=== PATIENT | female | born 1950 | race Caucasian/White ===

== ENCOUNTER 2024-09-11 05:21 | Inpatient (IN) | payer MEDICARE, BC, SELFPAY ==
[2024-09-11] VITALS (9 sets, daily range): BP systolic 106–137; BP diastolic 42–67; BMI 20.9
[2024-09-11 01:17] LABS: % Basophils 0.3 % (0-2); % Eosinophils 0.3 % (0-6); % Immature Granulocytes 0.7 % (0-0.5); % Lymphocytes 7.3 % (20.5-51.1); % Monocytes 5.7 % (1.7-9.3); % Neutrophils 85.7 % (42.2-75.2); Absolute Immature Granulocytes 0.1 10^3/uL (0-0.05); Absolute Lymphocytes 0.6 10^3/uL (1.2-3.4); Absolute Monocytes 0.5 10^3/uL (0.1-0.6); Absolute Neutrophils 7.5 10^3/uL (1.4-6.5); Hematocrit 46.4 % (37.0-47.0); Hemoglobin 14.9 g/dL (12.0-16.0); Mean Corp Hgb Conc. 32.1 g/dL (33.0-37.0); Mean Corpuscular Hgb 29.2 pg (27.0-31.0); Nucleated Red Blood Cells % 0 %; Platelet Count 183 10^3/uL (130-400); Red Cell Dist. Width 13.5 % (11.5-14.5); White Blood Cell Count 8.7 10^3/uL (4.8-10.8)
--- NOTE | 2024-09-11 01:35 | ED.GENMED ---
History of Present Illness
<Nanette Mireles, [facility] - Last Filed: 09/11/24 02:16>
General
Chief Complaint: Dehydration Symptoms
Source: patient and spouse
Exam Limitations: altered mental status (pt's states change from baseline)
Time Seen by Provider: 09/11/24 01:03
Nursing documentation reviewed up to this point in time: agreed with
History of Present Illness
History of Present Illness:
Pt is a 74 yo F with PMH of chronic back pain, UTI, metabolic encephalopathy, and delirium who presents to the ED via EMS with her for delirium x 1 1/2 days. The states on 09/09/24 around 14:30pm, he left the house to run errands and
the pt was sitting on the toilet. Pt's daughter arrived around 19:00pm to find pt still on toilet, slouched over, with some dried blood exiting her nose. Pt was woken up, had AMS and was then placed in bed. Pt denies remembering this incident. Pt's
states she told him she took 'some pills' she found earlier in the day, and says the only medication she could have had access to was old oxycodone that she was previously prescribed for chronic pain, but has been off of for 8 weeks
now. Pt went to sleep last night, woke up on 09/10/24 and went through her normal routine. Pt's says he came downstairs while pt was in the kitchen cooking breakfast and found her lying on the floor. He states she was conscious but too weak
to stand up. He did not notice any visible trauma, but she again had AMS. She was helped into bed again where she began to complain of L ankle pain from the fall. Pt's says her PO intake has been markedly decreased over the past 2 days, and
she has only had 8 ounces of water on 09/09 and 2 ounces of water on 09/10. Pt's states a similar episode to this occurred a few years ago where she was diagnosed with acute alteration in mental status due to dehydration and malnutrition.
Pt/pt's deny fever, chills, RAMEY, n/v/d/c, head trauma, neck pain, chest pain, dyspnea, SOB, abdominal pain.
Past History
<EDDA Fraga - Last Filed: 09/11/24 02:16>
Past History
ED Past Medical History: Other (Chronic back pain on daily narcotics ' for 30 years')
ED Past Surgical History: Other
Social History
Tobacco: Non-smoker
Alcohol: None
Drug: None
Personal:
Living: with family
Employment: Disabled
Family History
Family History: Other
Review of Systems
<EDDA Fraga - Last Filed: 09/11/24 02:16>
Review of Systems
Allergies reviewed?: Yes
Other source history: family
Constitutional: Denies fever, fatigue or chills
Respiratory: Denies cough or trouble breathing
Cardiac: Denies chest pain or palpitations
ABD/GI: Denies abdominal pain, nausea, vomiting, diarrhea or constipated
: Reports incontinence (chronic)
Musculoskeletal: Reports joint pain (L ankle) and joint swelling (mild edema on L lateral ankle joint)
Neurological: Reports weakness; Denies dizzy, headache or numbness
Phy Exam
<EDDA Fraga - Last Filed: 09/11/24 02:16>
General Physical Exam
General Presentation: well appearing and no apparent distress
General age: appears stated age
General Skin: warm, dry and ashen
General Habitus: normal and elderly
General Mental: confused
General Hydration: dry mucous membranes (mild)
General Chronic Disability: diapers
ENT Exam
ENT Exam: EOMI, neck supple and normocephalic
Eye Exam
Eye Exam: PERRL and EOMI
Gastrointestinal Exam
Gastrointestinal Exam: normal bowel sounds, non tender, soft and non distended
Neurological Exam
Neurological Exam: oriented x3, no motor deficits and no sensory deficits
Musculoskeletal Exam
Musculoskeletal Exam: edema (b/l LE), joint swelling (L lateral ankle) and neuro vasc intact
Skin Exam
Skin Exam: warm/dry
Course
<Nanette Mireles, [facility] - Last Filed: 09/11/24 02:16>
Orders/Labs/Results
Orders:
Orders
09/11/24 01:05
Complete Blood Count/With Diff Urgent
09/11/24 01:31
Straight cath- Treatment ONCE
09/11/24 01:32
CT Head W/o Iv Contrast Urgent
Comment:
Reason For Exam: acute change in MS
0.9% Sodium Chloride 1000 ml [Nss] 1,000 ml IV BOLUS
Ankle, left 3 view CR [CR Ankle - Left Min 3 Views ] Urgent
Comment:
Reason For Exam: FALL, LEFT ANKLE PAIN
09/11/24 01:38
Acetaminophen Urgent
Comment: ADD ON
Alcohol Urgent
Comprehensive Metabolic Panel Urgent
Creatine Phosphokinase Urgent
Comment: ADD ON
Lipase Urgent
Comment: ADD ON
Salicylate Urgent
Comment: ADD ON
09/11/24 01:59
EKG [Electrocardiogram (*1)] Urgent
Reason for Study: Tachycardia
09/11/24 02:16
Lactic Acid Urgent
09/11/24 02:36
CR Chest - 2 Views Urgent
Comment:
Reason For Exam: weakness, falls, rales L base
09/11/24 03:18
Fentanyl, Urine Urgent
Urinalysis Reflex To Culture Urgent
Date Specimen was Collected: 09/11/24
Time Specimen was Collected: 01:33
Urine Drug Abuse Screen Urgent
Date Specimen was Collected: 09/11/24
Time Specimen was Collected: 01:33
Urine Microscopic Reflex Cult Urgent
Urine Culture Urgent
ANDREI Source: U
Specimen Description:
Date Specimen was Collected: 09/11/24
Time Specimen was Collected: 01:33
09/11/24 03:41
CefTRIAXone [Rocephin] 2,000 mg IV NOW STA
09/11/24 03:42
0.9% Sodium Chloride 1000 ml [Nss] 1,000 ml IV 500 mls/hr
09/11/24 04:05
Sterile Water [Sterile Water For Injection] 20 ml .ROUTE .STK-MED
09/11/24 05:00
Flush (0.9% Sodium Chloride) [Flush (Nss)] See Dose Instructions IV PER PROTOCOL
09/11/24 05:03
Admit/Transfer Patient As Directed
Co-Sign Provider:
Level of Care: Inpatient admission
Assign to:: Medical/Surgical
Physician / Group: hospitalist
Diagnosis: mental status change
Reason for Hospitalization: mental status change
Expected length of stay greater than two midnights?: Yes
ELOS- Estimated Length of Stay in days: 2
I certify the patient meets the requirements for IP care: Yes
PRN Pain Medication Management As Directed
May give lesser potent ordered pain med per pt: Yes
preference::
Protocol:: Medication orders for pain may be administered in a
manner that supports deferring to patient preference
when the pt is:
- Requesting an ordered lesser potent pain medication.
Least to most potent pain medications are defined
as: acetaminophen < NSAID < tramadol < opioids
(morphine, oxycodone, hydromorphone).
- Requesting a lesser dose of the same medication IF
ORDERED.
- Requesting a less intrusive route of administration
if both routes are prescribed by the provider (PO <
IV).
09/11/24 05:04
Code Status As Directed
Resuscitation Status: Full Code
09/11/24 05:27
0.9% Sodium Chloride 1000 ml [Nss] 1,000 ml IV 125 mls/hr
Acetaminophen [Tylenol] 650 mg PO Q4HPRN PRN
Bisacodyl [Dulcolax] 10 mg RECTAL [id number] PRN
Docusate W/Senna [Senokot-S] 1 tablet PO BIDPRN PRN
Ipratropium/Albuterol Sulfate [Duoneb] 3 ml INH R Q4HPRN PRN
Ketorolac [Toradol] 10 mg IV Q6HPRN PRN
Ondansetron Injectable [Zofran] 4 mg IV Q6HPRN PRN
Polyethylene Glycol Powder [Miralax] 17 grams PO DAILYPRN PRN
09/11/24 05:27
Activity As Directed
Activity Level: With Assistance
Vital Signs As Directed
Frequency: Per unit guidelines
Pulse Ox/spot Check [RESP] Routine
Quantity: 1
DX Deep Vein Thrombosis Video Routine
09/11/24 Breakfast
Regular
Basic Metabolic Panel IN AM
Complete Blood Count/No Diff IN AM
Creatine Phosphokinase IN AM
TSH IN AM
Vitamin B12 IN AM
09/11/24 18:00
Enoxaparin Sodium [Lovenox] 40 mg SC QPM
09/12/24 00:00
CefTRIAXone [Rocephin] 1,000 mg IV Q24H
Abnormal Lab Results
09/11/24 09/11/24 09/11/24
01:05 01:38 03:18
MCHC 32.1 L g/dL
(33.0-37.0)
Abs Immat Gran (auto) 0.1 H 10^3/uL
(0-0.05)
Absolute Neuts (auto) 7.5 H 10^3/uL
(1.4-6.5)
Absolute Lymphs (auto) 0.6 L 10^3/uL
(1.2-3.4)
Immature Gran % 0.7 H %
(0-0.5)
Neutrophils % 85.7 H %
(42.2-75.2)
Lymphocytes % 7.3 L %
(20.5-51.1)
Sodium 133 L mmol/L
(135-145)
BUN 26 H mg/dl
(7-17)
Glucose 122 H mg/dl
(70-99)
AST 105 H U/L
(14-36)
Creatine Kinase 3540 H U/L
(30-135)
Urine Ketones Trace A
(Negative)
Ur Occult Blood Reflex 4+ A
(Negative)
Urine Nitrite (Reflex) Positive A
(Negative)
Urine Bilirubin 1+ A
(Negative)
Leukocyte Esterase Rfl 2+ A
(Negative)
Urine RBC 7-10 A /HPF
(0-2)
Urine WBC (Reflex) 16-20 A /HPF
(0-5)
Urine Bacteria (Reflex) Many A
(Negative)
Salicylates < 1.0 L mg/dl
(2.0-20.0)
Urine Opiates Screen Positive H
(Negative)
Acetaminophen < 10 L ug/ml
(10-30)
09/11/24 01:05
09/11/24 01:38
Vital Signs
Initial and Last Documented VS:
Initial Vital Signs
BP
137/55
09/11/24 01:06
Last Documented Vital Signs
Temp Pulse Resp BP Pulse Ox
98.2 F 75 16 108/54 99
09/11/24 01:07 09/11/24 05:00 09/11/24 05:00 09/11/24 05:00 09/11/24 05:00
<Dionne Aguilar, DO - Last Filed: 09/11/24 06:32>
Orders/Labs/Results
Orders:
Orders
09/11/24 01:05
Complete Blood Count/With Diff Urgent
09/11/24 01:31
Straight cath- Treatment ONCE
09/11/24 01:32
CT Head W/o Iv Contrast Urgent
Comment:
Reason For Exam: acute change in MS
0.9% Sodium Chloride 1000 ml [Nss] 1,000 ml IV BOLUS
Ankle, left 3 view CR [CR Ankle - Left Min 3 Views ] Urgent
Comment:
Reason For Exam: FALL, LEFT ANKLE PAIN
09/11/24 01:38
Acetaminophen Urgent
Comment: ADD ON
Alcohol Urgent
Comprehensive Metabolic Panel Urgent
Creatine Phosphokinase Urgent
Comment: ADD ON
Lipase Urgent
Comment: ADD ON
Salicylate Urgent
Comment: ADD ON
09/11/24 01:59
EKG [Electrocardiogram (*1)] Urgent
Reason for Study: Tachycardia
09/11/24 02:16
Lactic Acid Urgent
09/11/24 02:36
CR Chest - 2 Views Urgent
Comment:
Reason For Exam: weakness, falls, rales L base
09/11/24 03:18
Fentanyl, Urine Urgent
Urinalysis Reflex To Culture Urgent
Date Specimen was Collected: 09/11/24
Time Specimen was Collected: 01:33
Urine Drug Abuse Screen Urgent
Date Specimen was Collected: 09/11/24
Time Specimen was Collected: 01:33
Urine Microscopic Reflex Cult Urgent
Urine Culture Urgent
ANDREI Source: U
Specimen Description:
Date Specimen was Collected: 09/11/24
Time Specimen was Collected: 01:33
09/11/24 03:41
CefTRIAXone [Rocephin] 2,000 mg IV NOW STA
09/11/24 03:42
0.9% Sodium Chloride 1000 ml [Nss] 1,000 ml IV 500 mls/hr
09/11/24 04:05
Sterile Water [Sterile Water For Injection] 20 ml .ROUTE .STK-MED
09/11/24 05:00
Flush (0.9% Sodium Chloride) [Flush (Nss)] See Dose Instructions IV PER PROTOCOL
09/11/24 05:03
Admit/Transfer Patient As Directed
Co-Sign Provider:
Level of Care: Inpatient admission
Assign to:: Medical/Surgical
Physician / Group: hospitalist
Diagnosis: mental status change
Reason for Hospitalization: mental status change
Expected length of stay greater than two midnights?: Yes
ELOS- Estimated Length of Stay in days: 2
I certify the patient meets the requirements for IP care: Yes
PRN Pain Medication Management As Directed
May give lesser potent ordered pain med per pt: Yes
preference::
Protocol:: Medication orders for pain may be administered in a
manner that supports deferring to patient preference
when the pt is:
- Requesting an ordered lesser potent pain medication.
Least to most potent pain medications are defined
as: acetaminophen < NSAID < tramadol < opioids
(morphine, oxycodone, hydromorphone).
- Requesting a lesser dose of the same medication IF
ORDERED.
- Requesting a less intrusive route of administration
if both routes are prescribed by the provider (PO <
IV).
09/11/24 05:04
Code Status As Directed
Resuscitation Status: Full Code
09/11/24 05:27
0.9% Sodium Chloride 1000 ml [Nss] 1,000 ml IV 125 mls/hr
Acetaminophen [Tylenol] 650 mg PO Q4HPRN PRN
Bisacodyl [Dulcolax] 10 mg RECTAL [id number] PRN
Docusate W/Senna [Senokot-S] 1 tablet PO BIDPRN PRN
Ipratropium/Albuterol Sulfate [Duoneb] 3 ml INH R Q4HPRN PRN
Ketorolac [Toradol] 10 mg IV Q6HPRN PRN
Ondansetron Injectable [Zofran] 4 mg IV Q6HPRN PRN
Polyethylene Glycol Powder [Miralax] 17 grams PO DAILYPRN PRN
09/11/24 05:27
Activity As Directed
Activity Level: With Assistance
Vital Signs As Directed
Frequency: Per unit guidelines
Pulse Ox/spot Check [RESP] Routine
Quantity: 1
DX Deep Vein Thrombosis Video Routine
09/11/24 Breakfast
Regular
Basic Metabolic Panel IN AM
Complete Blood Count/No Diff IN AM
Creatine Phosphokinase IN AM
TSH IN AM
Vitamin B12 IN AM
09/11/24 18:00
Enoxaparin Sodium [Lovenox] 40 mg SC QPM
09/12/24 00:00
CefTRIAXone [Rocephin] 1,000 mg IV Q24H
Abnormal Lab Results
09/11/24 09/11/24 09/11/24
01:05 01:38 03:18
MCHC 32.1 L g/dL
(33.0-37.0)
Abs Immat Gran (auto) 0.1 H 10^3/uL
(0-0.05)
Absolute Neuts (auto) 7.5 H 10^3/uL
(1.4-6.5)
Absolute Lymphs (auto) 0.6 L 10^3/uL
(1.2-3.4)
Immature Gran % 0.7 H %
(0-0.5)
Neutrophils % 85.7 H %
(42.2-75.2)
Lymphocytes % 7.3 L %
(20.5-51.1)
Sodium 133 L mmol/L
(135-145)
BUN 26 H mg/dl
(7-17)
Glucose 122 H mg/dl
(70-99)
AST 105 H U/L
(14-36)
Creatine Kinase 3540 H U/L
(30-135)
Urine Ketones Trace A
(Negative)
Ur Occult Blood Reflex 4+ A
(Negative)
Urine Nitrite (Reflex) Positive A
(Negative)
Urine Bilirubin 1+ A
(Negative)
Leukocyte Esterase Rfl 2+ A
(Negative)
Urine RBC 7-10 A /HPF
(0-2)
Urine WBC (Reflex) 16-20 A /HPF
(0-5)
Urine Bacteria (Reflex) Many A
(Negative)
Salicylates < 1.0 L mg/dl
(2.0-20.0)
Urine Opiates Screen Positive H
(Negative)
Acetaminophen < 10 L ug/ml
(10-30)
09/11/24 01:05
09/11/24 01:38
Vital Signs
Initial and Last Documented VS:
Initial Vital Signs
BP
137/55
09/11/24 01:06
Last Documented Vital Signs
Temp Pulse Resp BP Pulse Ox
98.2 F 75 16 108/54 99
09/11/24 01:07 09/11/24 05:00 09/11/24 05:00 09/11/24 05:00 09/11/24 05:00
<EDDA Fraga - Last Filed: 09/11/24 02:16>
*EKG
Interpreted by ED Provider?: Yes
Interpretation: abnormal
Comparison EKG: no changes
Heart Rate: 81
Rate: normal
Rhythm: sinus and PAC's
Burgin: normal axis
Interval: normal interval
QRS Pattern: normal QRS
Ischemia: no ischemia
*Critical Care Note
Total Time (30-74mins, 75-104mins- exclusive of procedures): Not Applicable
<Dionne Aguilar DO - Last Filed: 09/11/24 06:32>
*Radiology
Radiology exam reviewed: preliminary read by ED provider (Chest x-ray concerning for posterior infiltrate versus scarring, new compared to previous film 2021. Left ankle x-ray negative for fracture.) and radiology read reviewed (CT of the head
shows no acute findings)
*Pulse Oximetry
Patient hypoxic: no
*Neurologist Interpretation
Rate: normal
Interpretation: normal
Rhythm: sinus and PAC's
ED Attending Note
<EDDA Fraga - Last Filed: 09/11/24 02:16>
-
Portions of this chart may have been created with voice recognition software.� Occasional wrong word or��sound alike� substitutions may have occurred due to the inherent limitations of voice recognition software.
<Dionne Aguilar DO - Last Filed: 09/11/24 06:32>
ED Attending Note
Patient seen and examined by attending physician: Yes
I performed the substantive portion of visit, reviewed & personally made and approve the management plan that is documented in note by myself or AMY.: Yes
ED Attending Note:
This is a 74-year-old woman who resides at home with her . She has history of chronic low back pain, had been chronically maintained on narcotics but these were weaned off April of this year.
According to patient and she had found some old leftover oxycodone and she admits to taking some of these yesterday. She suffered a mechanical fall yesterday in the kitchen, complains of left ankle pain and according to has been
generally lethargic since yesterday, was sitting on the toilet for approximately 6 hours today and has had minimal oral intake today.
Similar episode occurred requiring hospitalization in February 2022. At that time she had been maintained on opioids but was admitted for acute change in mental status, toxic encephalopathy, dehydration and found to have UTI as well as
choledocholithiasis requiring MRCP with sphincterotomy. She was found to have gallstone pancreatitis. Was recommended to have cholecystectomy but refused. Treated for UTI, IV fluids for dehydration and eventually discharged to [facility]
facility. At that time patient had been nonambulatory, wheelchair-bound. She has since had improvement in her ambulation but remains with marked physical limitations.
She denies fever, has not had a cough, denies abdominal pain, no vomiting or diarrhea.
She denies headache. No neck nor back pain.
Her only complaint is left ankle pain.
GENERAL: 74-year-old woman appears somewhat older than stated age, awake and alert, exhibits a moderately blunted affect. Easily communicative. Following commands. is accompanying.
EYE: anicteric
NECK: Supple, nontender, no meningismus, no significant adenopathy.
ENT: oral mucosa is mildly dry. Lips are mildly dry.
CARDIAC: Regular rhythm, occasional ectopy. no murmur.
LUNGS: no acute respiratory distress, scant rales left base otherwise clear to auscultation.
ABDOMEN: Soft, nondistended, without focal tenderness, no r/g, no cvat. normoactive BS.
NEUROLOGICAL: Alert and oriented x3, exhibits a moderately blunted affect. Motor strength 5/5 bilaterally.
SKIN: Warm and dry, normal color, skin intact. Fair turgor. Fine scaly dry skin bilateral lower legs with moderate global erythema to the left ankle and left foot. Left ankle and left foot are moderately warm to touch with moderate tenderness to
palpation left lateral ankle and mild tenderness left anterior to the medial ankle. There is mild soft tissue swelling of the left ankle and mildly restricted range of motion of left ankle related to pain.
MUSCULOSKELETAL: +2 nonpitting edema bilateral lower extremities. Peripheral pulses are full and equal b/l.
PSYCH: Moderately blunted affect.
Concern for toxic ingestion, illicit opioid ingestion as cause for blunted affect and mild lethargy.
Patient suffered a fall yesterday, concern for left ankle sprain/fracture other consideration is cellulitis of the left foot/ankle, inflammatory/infectious arthropathy.
Concern for toxic metabolic encephalopathy, closed head injury, dehydration, electrolyte abnormality, concern for UTI.
states patient had been sitting on the toilet for extended period today, concern for rhabdomyolysis.
Thus far hemodynamically stable and afebrile. No reported fever.
Will initiate IV fluids. Will check CT of the head, left ankle x-ray, chest x-ray.
Labs are pending. will check urinalysis as well as salicylate, acetaminophen, EtOH, urine drug screen.
03:35
Labs show mild dehydration with normal creatinine, elevated BUN. Moderately elevated CPK greater than 3000 consistent with rhabdomyolysis.
Urinalysis consistent with UTI.
Lactic acid is normal.
Salicylate and acetaminophen are negative. EtOH is negative. Urine drug screen positive for opiates.
CT of the head shows no acute findings. Left ankle x-ray negative for fracture.
IV fluids have been initiated. Will give an IV dose of Rocephin for coverage of UTI and this should cover potential cellulitis as well.
Will admit to hospitalist service for continued care.
Discharge Plan
Departure
Patient Disposition: Admit
Date of Disposition: 09/11/24
Time of Disposition: 03:47
Admit to: Med/Surg
Admit to doctor: Servando
Presentation/result/management discussed w/ accepting MD/DO: Hospitalist
Condition: Fair
Discharge Problem:
illicit opioid use, Toxic metabolic encephalopathy, Urinary tract infection, ACUTE RHABDOMYOLYSIS, cellulitis left foot/ankle
Interventions
Interventions:
*Risk Screen - Suicide Last Done: 09/11/24 01:07
*General Assessment Last Done: 09/11/24 01:07
*Neglect/Abuse Screening Last Done: 09/11/24 01:07
ED- Fall Risk Assessment Last Done: 09/11/24 02:23
*ED COVID-19 Vaccine History Last Done: 09/11/24 01:07
ED- Cardiac Assessment Last Done: 09/11/24 02:23
ED- Neurological Assessment Last Done: 09/11/24 02:23
ED- Pulmonary Assessment Last Done: 09/11/24 02:23
[2024-09-11] MEDS: NSS 1000 IV ×4 (01:38→15:38)
[2024-09-11 02:21] LABS: ALT (SGPT) 18 U/L (0-35); AST (SGOT) 105 U/L (14-36); Acetaminophen < 10 ug/ml (10-30); Albumin 4.1 g/dl (3.5-5.0); Alkaline Phosphatase 79 U/L (38-126); Blood Urea Nitrogen 26 mg/dl (7-17); Calcium 9.2 mg/dl (8.4-10.2); Carbon Dioxide 25 mmol/L (22-30); Chloride 99 mmol/L (98-107); Estimated Creatinine Clearance 72 ml/min; Glucose 122 mg/dl (70-99); Potassium 4.6 mmol/L (3.5-5.1); Salicylate < 1.0 mg/dl (2.0-20.0); Sodium 133 mmol/L (135-145); Total Bilirubin 0.9 mg/dl (0.2-1.3); Total Protein 7.1 g/dl (6.3-8.2); eGFR > 60.00
[2024-09-11 02:22] LABS: Alcohol None Detected
[2024-09-11 02:27] LABS: Creatine Phosphokinase 3540 U/L (30-135)
[2024-09-11 02:51] LABS: Lactic Acid 1.1 mmol/L (0.7-2.0)
[2024-09-11 03:28] LABS: Urine Albumin Trace (Neg - Trace); Urine Bilirubin 1+ (Negative); Urine Character Very Cloudy (Clear); Urine Color Yellow; Urine Glucose Negative (Negative); Urine Ketone Trace (Negative); Urine Leukocyte 2+ (Negative); Urine Nitrite Positive (Negative); Urine Occult Blood 4+ (Negative); Urine Specific Gravity 1.025 (<1.030); Urine Urobilinogen Negative (Neg - 1+)
[2024-09-11 03:37] LABS: Amphetamines Negative (Negative); Barbiturates Negative (Negative); Benzodiazepines Negative (Negative); Buprenorphine Negative (Negative); Cocaine Negative (Negative); Marijuana Negative (Negative); Methadone Negative (Negative); Methamphetamines Negative (Negative); Opiates Positive (Negative); Phencyclidine Negative (Negative); Tricyclic Antidepressants Negative (Negative)
[2024-09-11 03:40] LABS: Urine Bacteria Many (Negative); Urine White Cell 16-20 /HPF (0-5)
[2024-09-11 03:49] LABS: Lipase 68 U/L (23-300)
[2024-09-11 03:51] LABS: Fentanyl, Urine Negative (Negative)
[2024-09-11] MEDS: ROCEPHIN 2000 MG IV (04:15)
--- NOTE | 2024-09-11 05:31 | EDRN ---
Patient sleeping with at bedside
--- NOTE | 2024-09-11 05:37 | HPS.HSE ---
Family Physician
-
Family Physician: * NONE
Chief Complaint
-
Fall, lethargy and altered mental status
History of Present Illness
This is a 74-year-old female was past medical history of chronic back pain status postsurgery, history of choledocholithiasis status post ERCP and sphincterectomy who presents to the emergency department following a fall at home and found to be
lethargic and altered per .
Patient was intermittently arousable and coherent however she was not able to provide history. Spouse provided history at bedside. Patient appeared to have been having intermittent episodes of lethargy over the last 2 days. She was brought into
the emergency department today because she was sitting on the commode for 6 hours without moving. She was difficult to help ambulate per spouse. There was no loss of consciousness. She did however fall perhaps 2 days ago in the kitchen. She
complained of left ankle pain. Per the patient has been following pain specialist and has been weaned off of opioids for several months. PDMP shows last opioid was prescribed in April. Patient herself said she had not taking opiates for a
long time but recently she found some old bottles and started taking the opioids again. He was unable to specify exactly how much and over how long he has been taking. He she is also denies any other coingestions specifically muscle relaxants
which was prescribed recently but has not been taking for some time. She denies any abdominal pain nausea or vomiting. She denies any diarrhea. She denies any urinary symptoms. She denies any headache. She denies lightheadedness or dizziness.
In the emergency department she was normotensive with a blood pressure of 107/65 pulse of 81, afebrile and she was satting 96% on 2 L. CBC was completely unremarkable. Chemistries notable for a sodium of 133 but otherwise electrolytes LFTs and
lipase were all within normal limits. She had normal BUN and creatinine. CPK was elevated at 3400. UA was positive. She had a CT of the head which shows no acute abnormalities. X-rays of her ankle negative for fracture, subluxation or
dislocation. Chest x-ray shows the wrist diaphragm but otherwise without any acute infiltrates. Lactic acid was normal. Urine toxicology was positive for opioids. It was negative for any other drugs of abuse. No drugs on serum screen.
Medical History
Past Medical History
Past Medical History: Reports Other
Additional Past Medical History:
Chronic back pain
Choledocholithiasis status post ERCP and sphincterectomy
Urinary tract infections
Previous opioid dependence
Past Surgical History: Reports Orthopedic (Spine surgery,hip replacement)
Social History
Tobacco: Smoker
Alcohol: None
Drug: None
Personal:
Living: With Family
Employment: Not Employed
Family History
Family History: Not pertinent
Allergies / Home Medications
Allergies reflects when Allergies were last updated in [employer].
Home Medications with original date entered in [employer]
Allergy/Medication List:
Allergies
Allergy/AdvReac Type Severity Reaction Status Date / Time
grass pollen Allergy Pharmacy Verified 09/11/24 01:15
to Review
house dust Allergy Pharmacy Verified 09/11/24 01:15
to Review
mold Allergy Pharmacy Verified 09/11/24 01:15
to Review
tree and shrub pollen Allergy Pharmacy Verified 09/11/24 01:15
to Review
Home Medications
No Meds [No Current Medications] 09/11/24
Review of Systems
-
History Source: Patient and Family
Constitutional: Reports Sleep Disturbance
EENT: Reports No Symptoms
Respiratory: Reports No Symptoms
Cardiac: Reports No Symptoms
Abdomen/GI: Reports No Symptoms
: Reports No Symptoms
Musculoskeletal: Reports Joint Pain
Skin: Reports No Symptoms
Neurological: Reports No Symptoms
Endocrine: Reports No Symptoms
Hematologic/Lymphatic: Reports No Symptoms
Psych: Reports No Symptoms
Physical Exam
Vital Signs
Vital Signs
Temp Pulse Resp BP Pulse Ox
98.2 F 75 16 108/54 99
09/11/24 01:07 09/11/24 05:00 09/11/24 05:00 09/11/24 05:00 09/11/24 05:00
Physical Exam
General: Well Developed and Comfortable
HEENT: NormoCephalic, Anicteric, Moist mucous membranes, Atraumatic, PERRLA and Oxygen
Respiratory: Clear
Cardiac: S1/S2 and Regular Rhythm
GI: Soft, Non Tender, Non Distended and Normal Bowel Sounds
Rectal: Deferred by Provider
Genito-urinary: Deferred by me
Musculoskeletal: No Clubbing, No Cyanosis, No Edema and Other (left ankle and foot swollen, some erythema, tenderness to palpation at the ankle but not foot, pain with foot extension)
Neuro: Oriented (oriented x 4 when alerted. ) and Nonfocal/grossly intact
Hematologic/Lymphatic: No Lymphadenopathy
Psych: Calm
Laboratory Results
-
Laboratory Results
Lactic Acid 1.1 mmol/L (0.7-2.0) 09/11/24 02:16
Total Bilirubin 0.9 mg/dl (0.2-1.3) 09/11/24 01:38
AST 105 U/L (14-36) H 09/11/24 01:38
ALT 18 U/L (0-35) 09/11/24 01:38
Alkaline Phosphatase 79 U/L (38-126) 09/11/24 01:38
Lipase 68 U/L (23-300) 09/11/24 01:38
Data Reviewed
-
Diagnostic Radiology: Image Personally Visualized and interpreted
CT Scan: Report Reviewed by me
Lab Data: Labs Reviewed by me
Old Records: Reviewed
Impression/Plan
-
IMPRESSION:
74-year-old female with painful left ankle after suffering a fall at home. She is intermittently somnolent and has on prescribed opioids in the urine toxicology. She admitted to having found and taken opioid after being weaned off for several
weeks. Likely developed toxicity/overdose with somnolence. U/A positive for UTI with h/o pyelo/bacteremia in the past. Abdominal exam was benign with normal lfts and lipase.
PLAN:
1. Altered mental status - Suspect mostly toxic encephalopathy secondary to opioid abuse. Sleepy but readily aroused and appropriate only to return to sleeping. She is protecting airways and is not at risk of intubation. CT head is normal. No
other co-ingestions or toxins found.
- admit to telemetry
- oxygen to keep sat > 93
- serial examinations of alertness
- avoiding opioids
- treat UTI
- IV fluids
2. Left ankle swelling - Possible sprain but appears to have significant pain with range of motion, effusion and point tenderness concerning for inflammatory arthritis. Ankle xray without acute fracture.
- check esr
- will continue ceftriaxone for uti
- consult and add vancomycin if esr elevated
- keep leg elevated
3. UTI -
- IV ceftriaxone
4. Rhabdomyolysis - CPK 3400. Renal function appears normal.
- Continue IV NS at 125 ml/hr for now
- trend CPK
DVT PPX - lovenox sq
Code status - full code
[2024-09-11 07:21] LABS: Hematocrit 45.3 % (37.0-47.0); Hemoglobin 14.2 g/dL (12.0-16.0); Mean Corp Hgb Conc. 31.3 g/dL (33.0-37.0); Mean Corpuscular Hgb 29.6 pg (27.0-31.0); Mean Corpuscular Volume 94.4 fL (81.0-99.0); Mean Platelet Volume 8.6 fL (7.4-10.4); Platelet Count 152 10^3/uL (130-400); Red Cell Dist. Width 13.4 % (11.5-14.5); White Blood Cell Count 5.5 10^3/uL (4.8-10.8)
[2024-09-11 07:46] LABS: COVID-19 Antigen Negative (Negative)
[2024-09-11 07:53] LABS: Blood Urea Nitrogen 22 mg/dl (7-17); Calcium 8.5 mg/dl (8.4-10.2); Carbon Dioxide 25 mmol/L (22-30); Chloride 101 mmol/L (98-107); Estimated Creatinine Clearance 96 ml/min; Glucose 106 mg/dl (70-99); Potassium 4.5 mmol/L (3.5-5.1); Sodium 134 mmol/L (135-145); eGFR > 60.00
[2024-09-11 07:57] LABS: Erythrocyte Sed Rate 16 mm/hour (0-20)
[2024-09-11 08:27] LABS: TSH 0.89 uIU/ml (0.47-4.68)
[2024-09-11 08:46] LABS: Vitamin B12 168 pg/ml (239-931)
[2024-09-11 10:36] LABS: Creatine Phosphokinase 2672 U/L (30-135)
--- NOTE | 2024-09-11 13:47 | W.PN.HOSP.TC ---
Today's Communication/Plan
-
Continue with IV ceftriaxone
Avoid opiates
Monitor mental status
Assessment / Plan
Assessment / Plan
#Toxic metabolic encephalopathy
#Opioid use
#Urinary tract infection
-Unclear etiology though TME suspected to be secondary to opiates versus UTI
-Presented with altered mental status; CT head unremarkable, no other coingestions or toxins per labs
-Suspected that this is due to opioid use which she takes at home, cannot rule out UTI however
-Urinalysis did show markers of infection; culture obtained, started on ceftriaxone
-AAOx4 as of this morning, unable to recall events that brought her in the hospital
-Will continue with IV CTX and follow urine culture
-Continue with clinical mental status checks, avoid opiates
#Left ankle swelling
-Noted on arrival with significant pain with ROM, significant point tenderness
-As of today her discomfort to the left ankle is much improved, no significant swelling
-Suspect that this was an ankle sprain, will defer against ultrasound or tap at this time
-Continue to monitor clinically, trend CBC and temperature curve
#Rhabdomyolysis
-CK level 3400 on arrival, no signs of renal insufficiency
-Was started on IV normal saline at 125 mL/h
-Will continue with IV fluids and trend BMP, CK levels daily
#H/O choledocholithiasis s/p ERCP and sphincterectomy
#S/p spinal surgery
#S/p hip replacement
DVT prophylaxis: Lovenox
Diet: Regular
CODE STATUS: Full code
Anticipated Discharge: 24 - 48 hours
Subjective/Interval History
-
Date of Service: September 11, 2024
Seen and examined at the bedside. No acute events. AFVSS as of this morning.
At time of my evaluation she was AAO x 4 however unable to recall most of the events that brought her to the hospital
She denied any acute complaints including chest pain, dyspnea, fevers or chills, GI or urinary issues, bleeding or bruising, paresthesias or weakness.
Objective Data
-
Labs:
Laboratory Results
09/11/24 09/11/24
01:38 07:02
WBC 5.5
Hgb 14.2
Hct 45.3
Plt Count 152
Sodium 133 L 134 L
Potassium 4.6 4.5
Chloride 99 101
Carbon Dioxide 25 25
BUN 26 H 22 H
Creatinine 0.8 0.6
Glucose 122 H 106 H
Calcium 9.2 8.5
Total Bilirubin 0.9
AST 105 H
ALT 18
Alkaline Phosphatase 79
Vital Signs:
Vital Signs
Temp Pulse Resp BP Pulse Ox
97.8 F 86 18 118/56 96
09/11/24 13:01 09/11/24 13:01 09/11/24 07:32 09/11/24 13:01 09/11/24 13:01
Review of Systems
-
History Source: Patient
All other systems: Reviewed and negative
Physical Exam
-
General: Well Developed, No Apparent Distress, Comfortable and Other (Thin female)
HEENT: Normocephalic, Atraumatic and Moist Mucous Membranes
Respiratory: Clear to Auscultation and Non Labored Respirations
Cardiac: Regular Rhythm and S1/S2; Negative Murmur, Rub or Gallop
GI: Soft, Nontender, Nondistended and Normal Bowel Sounds
Musculoskeletal: No Clubbing, No Cyanosis and No Edema
Skin: Warm, Dry and Normal Turgor; Negative Rash or Jaundice
Neuro: AO x 3, Nonfocal/Grossly Intact and Central Nerve's Intact; Negative Tremors or Slurred Speech
Psych: Calm
Data Reviewed
-
Labs: Labs Reviewed by me, Discussed with Nurse and Discussed with Patient
[2024-09-11] MEDS: LOVENOX 40 MG SC (18:12)
[2024-09-12 00:01] VITALS: BP 125/62
[2024-09-12] MEDS: ROCEPHIN 1000 MG IV (00:47)
[2024-09-12] MEDS: STERILE WATER FOR INJECTION 10 ML IV (00:48)
[2024-09-12] MEDS: NSS 1000 IV ×2 (02:10→12:31)
[2024-09-12 07:42] VITALS: BP 147/72
[2024-09-12 08:31] LABS: % Basophils 0.3 % (0-2); % Eosinophils 1.8 % (0-6); % Immature Granulocytes 0.3 % (0-0.5); % Lymphocytes 17.5 % (20.5-51.1); % Monocytes 8.8 % (1.7-9.3); % Neutrophils 71.3 % (42.2-75.2); Absolute Eosinophils 0.1 10^3/uL (0-0.7); Absolute Lymphocytes 0.7 10^3/uL (1.2-3.4); Absolute Monocytes 0.4 10^3/uL (0.1-0.6); Absolute Neutrophils 2.9 10^3/uL (1.4-6.5); Hematocrit 37.1 % (37.0-47.0); Mean Corp Hgb Conc. 32.3 g/dL (33.0-37.0); Mean Corpuscular Hgb 30.5 pg (27.0-31.0); Mean Corpuscular Volume 94.4 fL (81.0-99.0); Nucleated Red Blood Cells % 0 %; Platelet Count 136 10^3/uL (130-400); Red Blood Cell Count 3.93 10^6/uL (4.20-5.40); Red Cell Dist. Width 13.4 % (11.5-14.5)
[2024-09-12 09:04] LABS: Blood Urea Nitrogen 15 mg/dl (7-17); Calcium 7.9 mg/dl (8.4-10.2); Carbon Dioxide 26 mmol/L (22-30); Chloride 106 mmol/L (98-107); Creatine Phosphokinase 604 U/L (30-135); Estimated Creatinine Clearance 96 ml/min; Glucose 82 mg/dl (70-99); Potassium 3.7 mmol/L (3.5-5.1); Sodium 139 mmol/L (135-145); eGFR > 60.00
--- NOTE | 2024-09-12 10:09 | CM ---
CM reviewed medical records. CM met with patient in room. Patient confirmed demographics. Patient lives with her in a two story home. Patient reports that she stays on first floor. Patient stated that she has not had VN in the past, but she
does report going to a 'rehab' for several weeks. She cannot remember where or when she was placed. Patient stated that she does not have a PCP. Patient stated that she uses [facility] on [facility] for medication services.
PLAN: Pending further clinical work up.
--- NOTE | 2024-09-12 12:26 | PTCARENOTE ---
Pt is more alert/oriented today compared to yesterday. OOB to bathroom w/ walker and staff assist x 1. Was a little unsteady/weak. Had formed/brown BM.
--- NOTE | 2024-09-12 13:32 | W.PN.HOSP.TC ---
Today's Communication/Plan
-
Continue IV CTX and follow urine culture sensitivities
Hold opiates, monitor level of pain
Neurochecks
Assessment / Plan
Assessment / Plan
#Toxic metabolic encephalopathy
#Opioid use
#Urinary tract infection
-Unclear etiology though TME suspected to be secondary to opiates versus UTI
-Presented with altered mental status; CT head unremarkable, no other coingestions or toxins per labs
-Suspected that this is due to opioid use which she takes at home, cannot rule out UTI however
-AAOx4 as of this morning, unable to recall events that brought her in the hospital
-Pain fairly well-controlled without opiates at this time
-UA was positive, culture showing E. coli with sensitivities
Plan
-Hold opiates, continue with Toradol for pain, monitor BMP
-Will continue with IV CTX and follow urine culture sensitivities
-Continue with clinical mental status checks
-Trend CBC and temperature curve
#Left ankle swelling
-Noted on arrival with significant pain with ROM, significant point tenderness
-As of today her discomfort to the left ankle is much improved, no significant swelling
-Suspect that this was an ankle sprain, will defer against ultrasound or tap at this time
-Continue to monitor clinically, trend CBC and temperature curve
#Rhabdomyolysis
-CK level 3400 on arrival, no signs of renal insufficiency
-Was started on IV normal saline at 125 mL/h
-Will continue with IV fluids and trend BMP, CK levels daily
-CK level down to 600 today
#H/O choledocholithiasis s/p ERCP and sphincterectomy
#S/p spinal surgery
#S/p hip replacement
DVT prophylaxis: Lovenox
Diet: Regular
CODE STATUS: Full code
Anticipated Discharge: Within 24 hours
Subjective/Interval History
-
Date of Service: September 12, 2024
Seen and examined at the bedside. No acute events reported overnight. AFVSS this morning
Urine culture preliminary positive for E. coli, sensitivities pending. AAOx4 today. Denies significant pain while holding opiates
Denies any acute complaints
Objective Data
-
Labs:
Laboratory Results
09/12/24
07:18
WBC 4.0 L
Hgb 12.0
Hct 37.1
Plt Count 136
Sodium 139
Potassium 3.7
Chloride 106
Carbon Dioxide 26
BUN 15
Creatinine 0.5 L
Glucose 82
Calcium 7.9 L
Vital Signs:
Vital Signs
Temp Pulse Resp BP Pulse Ox
98.5 F 75 18 147/72 95
09/12/24 07:42 09/12/24 07:42 09/12/24 07:42 09/12/24 07:42 09/12/24 07:42
I&O
09/11/24 09/12/24 09/13/24
06:59 06:59 06:59
Intake Total 1375 / 1375
Output Total 500 / 500
Balance 875 / 875
Review of Systems
-
History Source: Patient
All other systems: Reviewed and negative
Physical Exam
-
General: Well Developed, Well Nourished, No Apparent Distress and Comfortable
HEENT: Normocephalic, Atraumatic, Moist Mucous Membranes and Anicteric
Respiratory: Clear to Auscultation and Non Labored Respirations
Cardiac: Regular Rhythm and S1/S2; Negative Murmur, Rub or Gallop
GI: Soft, Nontender, Nondistended and Normal Bowel Sounds
Musculoskeletal: No Clubbing, No Cyanosis and No Edema
Skin: Warm and Dry; Negative Rash
Neuro: AO x 3 and Nonfocal/Grossly Intact
[2024-09-12 15:31] VITALS: BP 135/80
[2024-09-12] MEDS: NSS IV (16:18)
[2024-09-12] MEDS: LOVENOX 40 MG SC (17:47)
--- NOTE | 2024-09-12 20:33 | PTCARENOTE ---
Received pt awake, alert, oriented to self and place only with flat affect. Apical pulse regular. Right buttocks stage 2 present with stage 1 on bilateral buttocks. IVF infusing. Pt placed on bed alarm and assisted with turning and repositioning in
bed. Pt currently resting comfortably without c/o pain. Plan of care updated with pt.
[2024-09-12 23:25] VITALS: BP 153/77
[2024-09-13] MEDS: STERILE WATER FOR INJECTION 10 ML IV (00:46)
[2024-09-13] MEDS: ROCEPHIN 1000 MG IV (00:46)
[2024-09-13] MEDS: NSS 1000 IV (00:54)
[2024-09-13 05:15] LABS: % Basophils 0.5 % (0-2); % Eosinophils 2.2 % (0-6); % Immature Granulocytes 0.5 % (0-0.5); % Lymphocytes 19.7 % (20.5-51.1); % Monocytes 7.2 % (1.7-9.3); % Neutrophils 69.9 % (42.2-75.2); Absolute Eosinophils 0.1 10^3/uL (0-0.7); Absolute Lymphocytes 0.8 10^3/uL (1.2-3.4); Absolute Monocytes 0.3 10^3/uL (0.1-0.6); Absolute Neutrophils 2.9 10^3/uL (1.4-6.5); Hematocrit 40.4 % (37.0-47.0); Mean Corp Hgb Conc. 32.2 g/dL (33.0-37.0); Mean Corpuscular Hgb 29.7 pg (27.0-31.0); Mean Corpuscular Volume 92.2 fL (81.0-99.0); Mean Platelet Volume 8.5 fL (7.4-10.4); Nucleated Red Blood Cells % 0 %; Platelet Count 149 10^3/uL (130-400); Red Blood Cell Count 4.38 10^6/uL (4.20-5.40); Red Cell Dist. Width 13.3 % (11.5-14.5); White Blood Cell Count 4.2 10^3/uL (4.8-10.8)
[2024-09-13 06:02] LABS: Blood Urea Nitrogen 9 mg/dl (7-17); Carbon Dioxide 30 mmol/L (22-30); Chloride 105 mmol/L (98-107); Estimated Creatinine Clearance 96 ml/min; Glucose 87 mg/dl (70-99); Potassium 3.2 mmol/L (3.5-5.1); Sodium 141 mmol/L (135-145); eGFR > 60.00
[2024-09-13 07:48] VITALS: BP 147/95
[2024-09-13 08:42] LABS: Creatine Phosphokinase 449 U/L (30-135)
[2024-09-13] MEDS: NSS IV ×2 (08:54→14:42)
[2024-09-13] MEDS: KCL 40 MEQ PO ×2 (09:13→13:06)
[2024-09-13 09:56] VITALS: BP 179/96; PULSE 86
--- NOTE | 2024-09-13 10:21 | CM ---
Addendum entered by Lorena Medina 09/13/24 13:15:
[facility] consult placed. CM will update liaison.
Original Note:
Patient seen at bedside. IMM completed and signed form placed on chart. CM reviewed patient need for VN and patient indicated that she would think about it. CM will continue to follow for discharge planning needs.
Plan; home with no needs vs home with VN
--- NOTE | 2024-09-13 11:02 | PN.CDI ---
CDI
- -
CDI:
Physician Documentation Request
Admit Date: 09/11/24 05:21
Dear Doctor Reginlado,
Please review the following and provide your response in the progress notes.
Clinical Indicators:
Selected Entries
Pressure injury stage [Left Buttock] Stage 2
Physician documentation of the type and location of wounds is required for compliant documentation. Based on the above clinical findings and your assessment, please provide the following in your progress note:
Location of the ulcer/wound, including laterality.
Type (etiology) of ulcer/wound:
- Pressure (decubitus) ulcer
- Other(please specify)
For a pressure ulcer, please also include the stage* of the ulcer:
- Stage 1 - Skin intact, non-blanchable redness
- Stage 2 - Partial thickness loss of dermis, includes intact or open blister
- Stage 3 - Full thickness tissue not including bone, tendon or muscle
- Stage 4 - Full thickness tissue loss, including exposed bone, tendon or muscle
- Unstageable - Full thickness loss in which the base of the ulcer is covered by slough (yellow, seaman, pastrana, green or brown) and/or eschar (seaman, brown or black) in the wound bed.
Use of terms such as suspected, likely, concern for, or probable (associated with a specific diagnosis that is being evaluated, monitored, or treated as if it exists) are acceptable and can be coded in the inpatient setting, when documented at the
time of discharge.
Thank you,
Susan Baugh RN BSN CCDS
CDI Specialist
please contact via tiger text
Please use your independent medical judgment in providing your response.
*Source: National Pressure Ulcer Advisory Panel (NPUAP)
--- NOTE | 2024-09-13 12:29 | W.PN.HOSP.TC ---
Addendum entered and electronically signed by Rod Hair DO 09/14/24 13:59:
CDI: Stage II left buttocks pressure injury, POA. Wound care evaluated, provided instructions for wound care at home
Original Note:
Today's Communication/Plan
-
Transition to oral antibiotics
Avoid opiates and sedating agents
Discharge home with home care
Assessment / Plan
Assessment / Plan
#Toxic metabolic encephalopathy
#Opioid use
#Urinary tract infection
-Unclear etiology though TME suspected to be secondary to opiates versus UTI
-Presented with altered mental status; CT head unremarkable, no other coingestions or toxins per labs
-Suspected that this is due to opioid use which she takes at home, cannot rule out UTI however
-AAOx4 as of this morning, unable to recall events that brought her in the hospital
-Pain fairly well-controlled without opiates at this time
-UA was positive, culture showing pansensitive E. coli
Plan
-Hold opiates, continue with Toradol for pain, monitor BMP
-Transition ceftriaxone to oral Keflex to complete 7 days of antibiotics
-Continue with clinical mental status checks
-Trend CBC and temperature curve
#Left ankle swelling
-Noted on arrival with significant pain with ROM, significant point tenderness
-As of today her discomfort to the left ankle is much improved, no significant swelling
-Suspect that this was an ankle sprain, will defer against ultrasound or tap at this time
-Continue to monitor clinically, trend CBC and temperature curve
#Rhabdomyolysis
-CK level 3400 on arrival, no signs of renal insufficiency
-Was started on IV normal saline at 125 mL/h
-Will continue with IV fluids and trend BMP, CK levels daily
-Resolved
#H/O choledocholithiasis s/p ERCP and sphincterectomy
#S/p spinal surgery
#S/p hip replacement
DVT prophylaxis: Lovenox
Diet: Regular
CODE STATUS: Full code
Anticipated Discharge: Today
Subjective/Interval History
-
Date of Service: September 13, 2024
Seen and examined at the bedside. No acute events reported overnight. AFVSS this morning
States she feels well and is ready to go home. Seen by PT this morning. Case management consulted for home care with PT
Denies any acute complaints
Objective Data
-
Labs:
Laboratory Results
09/13/24
04:57
WBC 4.2 L
Hgb 13.0
Hct 40.4
Plt Count 149
Sodium 141
Potassium 3.2 L
Chloride 105
Carbon Dioxide 30
BUN 9
Creatinine 0.5 L
Glucose 87
Calcium 8.0 L
Vital Signs:
Vital Signs
Temp Pulse Resp BP Pulse Ox
97.5 F 72 17 147/95 97
09/13/24 07:48 09/13/24 07:48 09/13/24 07:48 09/13/24 07:48 09/13/24 10:29
I&O
09/12/24 09/13/24 09/14/24
06:59 06:59 06:59
Intake Total 1375 / 1375 940 / 940
Output Total 500 / 500 600 / 600
Balance 875 / 875 340 / 340
Review of Systems
-
History Source: Patient
All other systems: Reviewed and negative
Physical Exam
-
General: Well Developed, No Apparent Distress, Comfortable and Other (Thin and frail female)
HEENT: Normocephalic, Atraumatic, Moist Mucous Membranes and Anicteric
Respiratory: Clear to Auscultation and Non Labored Respirations
Cardiac: Regular Rhythm and S1/S2; Negative Murmur, Rub or Gallop
GI: Soft, Nontender, Nondistended and Normal Bowel Sounds
Musculoskeletal: No Clubbing, No Cyanosis and No Edema
Skin: Warm, Dry and Normal Turgor; Negative Rash
Neuro: AO x 3 and Nonfocal/Grossly Intact
Psych: Calm
Data Reviewed
-
Labs: Labs Reviewed by me, Discussed with Nurse and Discussed with Patient
--- NOTE | 2024-09-13 14:15 | VNURNOTE ---
Home Health Liaison spoke with patient's spouse Ethan to discuss [facility] nurse/therapy, visits, schedule and homebound status. He is agreeable and understands that visits at home will be 2-3 x per week to assess and teach medical management. Explained
to spouse since patient does not have PCP, would need residency clinic appt before [facility] can sign onto services. He is agreeable. Liaison arranging residency clinic appt for Weds per spouse request. [facility] brochure provided with contact information-
left at bedside along with residency clinic info. Spouse is aware that [facility] will contact them for start of care after seen at clinic. [facility] referral completed in [facility].
[2024-09-13 14:40] VITALS: BP 150/90
--- NOTE | 2024-09-13 14:47 | VNURNOTE ---
Confirmed with Sue at [facility] patient has appt Weds 09/20 1415. Spouse made aware and agreeable.
--- NOTE | 2024-09-13 15:09 | WOUNDNOTE ---
[facility] RN Note: Patient for discharge today. Patient admitted with a L sacral/buttocks small scabbed stage 2 pressure injury. Patient can turn self in bed and can ambulate with walker. Silicone border foam maintained. Extra silicone border foam given
to patient and an air chair cushion. Instructed patient proper turning to off load sacrum and to elevate heels off bed with pillow. Patient is on a [employer] air bed. Heels off bed with air chair cushion. She reports a good appetite. She lives with
her . Discharge instructions updated. Updated Dr. Hair and Loly Soto MARIELA nurse liaison via tiger text. MARIELA planned.
--- NOTE | 2024-09-14 14:05 | W.DCSUMMARY ---
Discharge Summary
Discharge Data
Date of Admission: 09/11/24
Date of Discharge: 09/14/24
-
Pending Results: No
Hospital Course
74-year-old female with no previous medical history that presented to the ED with encephalopathy after falling at home. Per , was previously prescribed opioids for chronic back pain, has not taken in some time for prescriptions, however has
been found opiates at home. Upon arrival was also found to have evidence of urinary tract infection. Urine culture returned positive for pansensitive E. coli. Was treated with IV ceftriaxone throughout hospital stay. Transition to cephalexin
every 6 hours to complete 7 days of antibiotics. removed opioids from the home, directed for patient to no longer take for pain or recreationally. Will follow-up with resident PCP clinic.
During her hospital stay she had no signs or symptoms of opiate withdrawal. She had no significant pain while on NSAID regimen. Recommended Tylenol and NSAIDs alternating at discharge as needed for back pain. Patient was AOx4 starting day 2 of
hospitalization through her discharge.
Discharge Plan
-
Patient Disposition: Home (Routine Discharge)
Discharge Diagnosis/Procedures: Encephalopathy
Urinary tract infection
Condition: Fair
Diet: No restrictions
Activity: As tolerated
Driving Restrictions: No driving for 24 hours
Bathing Restrictions: None
Blood Work: None
Other Services: PT and OT
Activity Restrictions/Additional Instructions:
Wound Care Instructions
Sacrum-clean with saline or soap and water, apply silicone border foam, change every 3 days and as needed for loosened dressing. If foam ineffective, apply barrier ointment 3 times a day instead.
Air chair cushion.
Frequent turning and repositioning.
Elevate heels off bed with pillow.
Follow up at wound care center if needed, call for an appointment.
Schedule follow-up appointment with your family doctor, should be seen within 1 to 2 weeks of discharge
Instructions: Urinary tract infections in adults
Referrals:
NONE,* [Family Provider] -
Additional Discharge Medication Instructions: Continue cephalexin 500 mg every 6 hours for 7 days after discharge
Use [id number] agents such as Tylenol or Motrin for back pain (do not use Motrin or other NSAIDs more than twice daily). Can alternate between Tylenol and NSAIDs
Prescriptions:
New
cephalexin 500 mg capsule
500 mg PO Q6H 7 Days Qty: 28 0RF
Discharge Orders:
Discharge Patient (As Directed); Ordered 09/13/24
Ordered By: Rod Hair
Discharge Date and Time
Discharge Date/Time: 09/13/24 16:47
Print Language: TELUGU
== END 2024-09-13 16:47 | disposition home or self-care (01) | DRG 689 ==
LOC: 1 ACUTE 05:21
PROVIDERS: ADMITTING PHYSICIAN Internal Medicine; ATTENDING PHYSICIAN Internal Medicine; EMERGENCY PHYSICIAN Emergency Medicine
DX: N39.0 Urinary tract infection, site not specified (principal); G92.8 Other toxic encephalopathy; L03.116 Cellulitis of left lower limb; M62.82 Rhabdomyolysis; F17.200 Nicotine dependence, unspecified, uncomplicated; L89.322 Pressure ulcer of left buttock, stage 2
CPT/HCPCS: 51701; 70450; 71046; 73610; 80048; 80053; 80143; 80179; 80306; 80307; 81003; 81015; 82077; 82550; 82607; 83605; 83690; 84443; 85025; 85027; 85652; 86140; 87086; 87088; 87186; 87811; 93005; 96361; 96374; 97162; 99285

== ENCOUNTER → 2024-09-28 13:33 | Outpatient (REF) | payer MEDICARE, BC, SELFPAY | LOC: HWRAD 13:33 | DX: F17.210 Nicotine dependence, cigarettes, uncomplicated (principal) | CPT/HCPCS: 71271 ==